=== PATIENT | male | born 1995 | race Caucasian/White ===

== ENCOUNTER 2021-07-02 17:29 | Inpatient (IN) | payer MEDICAID ==
[~2021-07-02] VITALS: Ht 185.4 cm; Wt 105.5 kg
[2021-07-02 18:44] LABS: BASOPHILS % (AUTO) 0.4 % (0.0-2.0); EOSINOPHILS % (AUTO) 0 % (1.0-6.0); HEMATOCRIT 41.4 % (41-53); HEMOGLOBIN 14.4 g/dL (13.5-17.5); LYMPHOCYTES # (AUTO) 1.1 K/uL (1.0-4.8); LYMPHOCYTES % (AUTO) 16.4 % (22.0-44.0); MEAN CORPUSCULAR HEMOGLOBIN 32.1 pg (26.0-34.0); MEAN CORPUSCULAR HGB CONC 34.7 G/dL (31.0-37.0); MEAN CORPUSCULAR VOLUME 93 fL (80-100); MONOCYTES # (AUTO) 0.5 K/uL (0.1-1.0); MONOCYTES % (AUTO) 8.4 % (2.0-9.0); NEUTROPHILS # (AUTO) 4.9 K/uL (1.8-7.7); NEUTROPHILS % (AUTO) 74.8 % (40.0-70.0); PLATELET COUNT (AUTO) 190 K/uL (150-450); RED BLOOD CELL COUNT(AUTO) 4.47 MIL/uL (4.50-5.90)
[2021-07-02 18:52] LABS: ANION GAP 12 mmol/L (8-16); CALCIUM, TOTAL 9.7 mg/dL (8.8-10.5); CARBON DIOXIDE 26 mmol/L (22-29); CHLORIDE 104 mmol/L (98-107); CREATININE 1.16 mg/dL (0.60-1.30); GLOMERULAR FILTR. RATE CALC > 60 mL/min (>60); GLUCOSE,RANDOM 103 mg/dL (70-110); POTASSIUM 3.9 mmol/L (3.5-5.1); SODIUM SERUM 142 mmol/L (136-145); UREA NITROGEN, BLOOD 11 mg/dL (7-18)
[2021-07-02 19:00] LABS: ALANINE AMINOTRANSFERASE 18 U/L (12-78); ALBUMIN 4.6 g/dL (3.4-5.0); ALKALINE PHOSPHATASE 57 U/L (46-116); ASPARTATE AMINOTRANSFERASE 13 U/L (15-37); BILIRUBIN,TOTAL 0.5 mg/dL (0.1-1.0); TOTAL PROTEIN, SERUM 7.9 g/dL (6.4-8.2)
[2021-07-02] MEDS ORDERED: LORazepam 1 MG TABLET PO ONE (19:15)
[2021-07-03 06:54] LABS: COVID AG,FIA SOURCE NASOPHARYNGEAL
[2021-07-03] MEDS ORDERED: ACETAMINOPHEN 325 MG TABLET PO PRN (10:30)
[2021-07-03] MEDS ORDERED: IBUPROFEN 400 MG TABLET PO PRN (10:30)
[2021-07-03] MEDS ORDERED: NICOTINE 14 MG/24 HOUR PATCH TD PRN (10:30)
[2021-07-03] MEDS ORDERED: CloNIDine HCL 0.1 MG TABLET PO PRN (10:30)
[2021-07-03] MEDS ORDERED: LOPERAMIDE HCL 2 MG CAPSULE PO PRN (10:30)
[2021-07-03] MEDS ORDERED: ONDANSETRON HCL 4 MG TABLET PO PRN (10:30)
[2021-07-03] MEDS ORDERED: GuaiFENesin/D-METHORPHAN [SUGAR-FREE] 200-20MG/10 ML SYRUP UDCUP PO PRN (10:30)
[2021-07-03] MEDS ORDERED: ALBUTEROL SULFATE HFA 90 MCG/PUFF 8 GM INHALER IH PRN (10:30)
[2021-07-03] MEDS ORDERED: MAG HYDROX/AL HYDROX/SIMETH ES 30 ML SUSPENSION UDCUP PO PRN (10:30)
[2021-07-03] MEDS ORDERED: PETROLATUM,WHITE 28 GM JELLY TP PRN (10:30)
[2021-07-03] MEDS ORDERED: MAGNESIUM HYDROXIDE SUSPENSION 30 ML UDCUP PO PRN (10:30)
[2021-07-03] MEDS ORDERED: DOCUSATE SODIUM 100 MG CAPSULE PO PRN (10:30)
[2021-07-03 11:51] LABS: AMPHET/METH SCREEN,URINE NEGATIVE (NEGATIVE); BARBITURATE SCREEN, URINE NEGATIVE (NEGATIVE); BENZODIAZEPINES SCREEN,URINE NEGATIVE (NEGATIVE); CANNABINOID SCREEN,URINE NEGATIVE (NEGATIVE); COCAINE SCREEN,URINE NEGATIVE (NEGATIVE); METHADONE SCREEN, URINE NEGATIVE (NEGATIVE); OPIATE SCREEN,URINE NEGATIVE (NEGATIVE); PHENCYCLIDINE SCREEN,URINE NEGATIVE (NEGATIVE)
[2021-07-03] MEDS ORDERED: INFLUENZA VIRUS VACCINE QVS 2021-22 (6MO+)/PF 60 MCG/0.5 ML SYRINGE IM. ONE (14:45)
[2021-07-03 16:13] VITALS: BP 122/81
[2021-07-03] MEDS ORDERED: HALOPERIDOL 5 MG TABLET PO PRN (17:15)
[2021-07-03] MEDS ORDERED: LORazepam 2 MG TABLET PO PRN (17:15)
[2021-07-03] MEDS ORDERED: ZOLPIDEM TARTRATE 10 MG TABLET PO PRN (17:15)
[2021-07-04 00:22] VITALS: BP 126/73
[2021-07-04 08:10] VITALS: BP 127/79
[2021-07-04] MEDS ORDERED: HALOPERIDOL 5 MG TABLET PO PRN (09:15)
[2021-07-04] MEDS: SERTRALINE HCL 50 MG TABLET PO SCH (09:30)
[2021-07-04] MEDS: OMEPRAZOLE 20 MG CAPSULE PO SCH (11:37)
[2021-07-04] MEDS: EMTRICITABINE/TENOFOV ALAFENAM 200-25 MG TABLET PO SCH (16:40)
[2021-07-04 17:21] VITALS: BP 117/65
[2021-07-04] MEDS: ZOLPIDEM TARTRATE 10 MG TABLET PO PRN (21:03)
[2021-07-05 00:15] VITALS: BP 114/68
[2021-07-05 07:23] LABS: CHOL/HDL RATIO 3.9 (4.2-7.3)
[2021-07-05 08:00] VITALS: BP 121/79
[2021-07-05] MEDS: OMEPRAZOLE 20 MG CAPSULE PO SCH (08:38)
[2021-07-05] MEDS: SERTRALINE HCL 50 MG TABLET PO SCH (08:38)
[2021-07-05] MEDS: EMTRICITABINE/TENOFOV ALAFENAM 200-25 MG TABLET PO SCH (08:38)
[2021-07-05] MEDS: LORazepam 2 MG TABLET PO PRN (10:10)
[2021-07-05 16:13] VITALS: BP 131/82
[2021-07-05] MEDS: ZOLPIDEM TARTRATE 10 MG TABLET PO PRN (20:49)
[2021-07-06 03:49] VITALS: BP 111/73
[2021-07-06 08:18] VITALS: BP 126/68
[2021-07-06] MEDS: OMEPRAZOLE 20 MG CAPSULE PO SCH (08:55)
[2021-07-06] MEDS: SERTRALINE HCL 50 MG TABLET PO SCH (08:56)
[2021-07-06] MEDS: EMTRICITABINE/TENOFOV ALAFENAM 200-25 MG TABLET PO SCH (08:56)
[2021-07-06] MEDS: LORazepam 2 MG TABLET PO PRN (12:40)
[2021-07-06 16:20] VITALS: BP 118/77
[2021-07-06] MEDS: ZOLPIDEM TARTRATE 10 MG TABLET PO PRN (20:50)
[2021-07-07 00:38] VITALS: BP 121/67
[2021-07-07] MEDS: EMTRICITABINE/TENOFOV ALAFENAM 200-25 MG TABLET PO SCH (08:37)
[2021-07-07] MEDS: SERTRALINE HCL 50 MG TABLET PO SCH (08:37)
[2021-07-07] MEDS: OMEPRAZOLE 20 MG CAPSULE PO SCH (08:37)
[2021-07-07 08:39] VITALS: BP 122/63
[2021-07-07] MEDS: LORazepam 2 MG TABLET PO PRN (12:23)
[2021-07-07 16:31] VITALS: BP 131/74
[2021-07-07] MEDS: ZOLPIDEM TARTRATE 10 MG TABLET PO PRN (20:23)
[2021-07-08 00:58] VITALS: BP 116/66
[2021-07-08 08:15] VITALS: BP 115/62
[2021-07-08] MEDS: OMEPRAZOLE 20 MG CAPSULE PO SCH (09:29)
[2021-07-08] MEDS: SERTRALINE HCL 50 MG TABLET PO SCH (09:29)
[2021-07-08] MEDS: EMTRICITABINE/TENOFOV ALAFENAM 200-25 MG TABLET PO SCH (09:29)
[2021-07-08] MEDS: LORazepam 2 MG TABLET PO PRN (09:33)
[2021-07-08] MEDS ORDERED: SERT-439 PO (11:18)
[2021-07-08] MEDS ORDERED: OMEP20 PO (11:43)
[2021-07-08] MEDS ORDERED: EMTR1TAB13 PO (11:43)
[2021-07-08 13:06] LABS: GLUCOMETER DEV NAME(LOC) POC.BV
== END 2021-07-08 13:30 | disposition home or self-care (01) | DRG 751 ==
LOC: EMS 17:31 → B2S 07-03 11:31
PROVIDERS: ADMIT Psychiatry & Neurology Psychiatry; ATTEND Psychiatry & Neurology Psychiatry
DX: F33.2 Major depressive disorder, recurrent severe without psychotic features (principal); R45.851 Suicidal ideations; F95.2 Tourette's disorder; E66.9 Obesity, unspecified; F42.9 Obsessive-compulsive disorder, unspecified; F43.12 Post-traumatic stress disorder, chronic; G47.00 Insomnia, unspecified; K21.9 Gastro-esophageal reflux disease without esophagitis; F90.9 Attention-deficit hyperactivity disorder, unspecified type; Z20.822 Contact with and (suspected) exposure to COVID-19; Z91.51 Personal history of suicidal behavior; Z79.899 Other long term (current) drug therapy; Z23 Encounter for immunization; Z68.30 Body mass index [BMI] 30.0-30.9, adult
CPT/HCPCS: 80053; 80061; 85025; 90686; 99285; G0480; Q9967

== ENCOUNTER 2021-07-14 01:52 | Inpatient (IN) | payer MEDICAID ==
[~2021-07-14] VITALS: Ht 185.4 cm; Wt 104.4 kg
[~2021-07-14 01:52] MED LIST: EMTR1TAB13 PO; OMEP20 PO; SERT-439 PO
[2021-07-14] MEDS ORDERED: HALOPERIDOL LACTATE 5 MG/ML VIAL IM ONE (03:30)
[2021-07-14] MEDS ORDERED: LORazepam 2 MG/ML VIAL IM ONE (03:30)
[2021-07-14] MEDS ORDERED: DiphenhydrAMINE HCL 50 MG/ML VIAL IM ONE (03:30)
[2021-07-14 04:08] LABS: COVID AG,FIA SOURCE NASOPHARYNGEAL
[2021-07-14 05:31] LABS: AMPHET/METH SCREEN,URINE NEGATIVE (NEGATIVE); BARBITURATE SCREEN, URINE NEGATIVE (NEGATIVE); BENZODIAZEPINES SCREEN,URINE NEGATIVE (NEGATIVE); CANNABINOID SCREEN,URINE NEGATIVE (NEGATIVE); COCAINE SCREEN,URINE NEGATIVE (NEGATIVE); METHADONE SCREEN, URINE NEGATIVE (NEGATIVE); OPIATE SCREEN,URINE NEGATIVE (NEGATIVE)
[2021-07-14 05:33] LABS: PHENCYCLIDINE SCREEN,URINE NEGATIVE (NEGATIVE)
[2021-07-14 07:23] LABS: BASOPHILS % (AUTO) 0.3 % (0.0-2.0); EOSINOPHILS % (AUTO) 0 % (1.0-6.0); HEMATOCRIT 40.9 % (41-53); HEMOGLOBIN 14.3 g/dL (13.5-17.5); LYMPHOCYTES # (AUTO) 1.5 K/uL (1.0-4.8); LYMPHOCYTES % (AUTO) 16.6 % (22.0-44.0); MEAN CORPUSCULAR HEMOGLOBIN 32.2 pg (26.0-34.0); MEAN CORPUSCULAR VOLUME 92 fL (80-100); MONOCYTES # (AUTO) 1.1 K/uL (0.1-1.0); MONOCYTES % (AUTO) 12.2 % (2.0-9.0); NEUTROPHILS # (AUTO) 6.5 K/uL (1.8-7.7); NEUTROPHILS % (AUTO) 70.9 % (40.0-70.0); PLATELET COUNT (AUTO) 168 K/uL (150-450); RED BLOOD CELL COUNT(AUTO) 4.44 MIL/uL (4.50-5.90); RED CELL DISTRIBUTION WIDTH 12.3 % (11.5-14.5)
[2021-07-14 07:34] LABS: ANION GAP 11 mmol/L (8-16); CALCIUM, TOTAL 9.2 mg/dL (8.8-10.5); CARBON DIOXIDE 26 mmol/L (22-29); CHLORIDE 106 mmol/L (98-107); CREATININE 1.15 mg/dL (0.60-1.30); GLOMERULAR FILTR. RATE CALC > 60 mL/min (>60); GLUCOSE,RANDOM 101 mg/dL (70-110); POTASSIUM 4.1 mmol/L (3.5-5.1); SODIUM SERUM 143 mmol/L (136-145); UREA NITROGEN, BLOOD 14 mg/dL (7-18)
[2021-07-14 07:39] LABS: ALANINE AMINOTRANSFERASE 18 U/L (12-78); ALBUMIN 4.4 g/dL (3.4-5.0); ALKALINE PHOSPHATASE 55 U/L (46-116); ASPARTATE AMINOTRANSFERASE 17 U/L (15-37); BILIRUBIN,TOTAL 1.1 mg/dL (0.1-1.0); TOTAL PROTEIN, SERUM 7.4 g/dL (6.4-8.2)
[2021-07-14 12:29] VITALS: BP 117/84
[2021-07-14] MEDS: HALOPERIDOL 5 MG TABLET PO PRN (13:37)
[2021-07-14] MEDS: LORazepam 2 MG TABLET PO PRN (13:37)
[2021-07-14 16:18] VITALS: BP 123/78
[2021-07-15 00:50] VITALS: BP 121/64
[2021-07-15 08:24] VITALS: BP 106/61
[2021-07-15] MEDS ORDERED: EMTRICITABINE/TENOFOV ALAFENAM 200-25 MG TABLET PO SCH (09:00)
[2021-07-15] MEDS ORDERED: OMEPRAZOLE 20 MG CAPSULE PO SCH (09:00)
[2021-07-15] MEDS: LORazepam 2 MG TABLET PO PRN (16:07)
[2021-07-15 16:20] VITALS: BP 140/81
[2021-07-15] MEDS ORDERED: NICOTINE 14 MG/24 HOUR PATCH TD PRN (17:15)
[2021-07-15] MEDS ORDERED: ONDANSETRON HCL 4 MG TABLET PO PRN (17:15)
[2021-07-15] MEDS ORDERED: CloNIDine HCL 0.1 MG TABLET PO PRN (17:15)
[2021-07-15] MEDS ORDERED: PETROLATUM,WHITE 28 GM JELLY TP PRN (17:15)
[2021-07-15] MEDS ORDERED: DOCUSATE SODIUM 100 MG CAPSULE PO PRN (17:15)
[2021-07-15] MEDS ORDERED: ACETAMINOPHEN 325 MG TABLET PO PRN (17:15)
[2021-07-15] MEDS ORDERED: LOPERAMIDE HCL 2 MG CAPSULE PO PRN (17:15)
[2021-07-15] MEDS ORDERED: MAGNESIUM HYDROXIDE SUSPENSION 30 ML UDCUP PO PRN (17:15)
[2021-07-15] MEDS ORDERED: ALBUTEROL SULFATE HFA 90 MCG/PUFF 8 GM INHALER IH PRN (17:15)
[2021-07-15] MEDS ORDERED: IBUPROFEN 400 MG TABLET PO PRN (17:15)
[2021-07-15] MEDS ORDERED: GuaiFENesin/D-METHORPHAN [SUGAR-FREE] 200-20MG/10 ML SYRUP UDCUP PO PRN (17:15)
[2021-07-15] MEDS ORDERED: MAG HYDROX/AL HYDROX/SIMETH ES 30 ML SUSPENSION UDCUP PO PRN (17:15)
[2021-07-15] MEDS: BusPIRone HCL 5 MG TABLET PO SCH (20:39)
[2021-07-16 00:33] VITALS: BP 133/72
[2021-07-16 08:33] VITALS: BP 136/87
[2021-07-16] MEDS: EMTRICITABINE/TENOFOV ALAFENAM 200-25 MG TABLET PO SCH (08:59)
[2021-07-16] MEDS: BusPIRone HCL 5 MG TABLET PO SCH ×3 (08:59→20:10)
[2021-07-16] MEDS: OMEPRAZOLE 20 MG CAPSULE PO SCH (08:59)
[2021-07-16] MEDS: SERTRALINE HCL 50 MG TABLET PO SCH (08:59)
[2021-07-16 16:26] VITALS: BP 122/74
[2021-07-16] MEDS: LORazepam 2 MG TABLET PO PRN (16:37)
[2021-07-16] MEDS: ZOLPIDEM TARTRATE 10 MG TABLET PO PRN (21:11)
[2021-07-17 00:37] VITALS: BP 119/70
[2021-07-17] MEDS: BusPIRone HCL 5 MG TABLET PO SCH ×3 (08:30→20:06)
[2021-07-17] MEDS: EMTRICITABINE/TENOFOV ALAFENAM 200-25 MG TABLET PO SCH (08:30)
[2021-07-17] MEDS: SERTRALINE HCL 50 MG TABLET PO SCH (08:30)
[2021-07-17] MEDS: OMEPRAZOLE 20 MG CAPSULE PO SCH (08:30)
[2021-07-17 09:11] VITALS: BP 126/69
[2021-07-17] MEDS: LORazepam 2 MG TABLET PO PRN (14:06)
[2021-07-17 16:14] VITALS: BP 133/74
[2021-07-17] MEDS: TraZODone HCL 50 MG TABLET PO SCH (20:06)
[2021-07-18 05:50] VITALS: BP 107/60
[2021-07-18 08:34] VITALS: BP 112/68
[2021-07-18] MEDS: BusPIRone HCL 5 MG TABLET PO SCH ×3 (09:05→20:31)
[2021-07-18] MEDS: EMTRICITABINE/TENOFOV ALAFENAM 200-25 MG TABLET PO SCH (09:05)
[2021-07-18] MEDS: OMEPRAZOLE 20 MG CAPSULE PO SCH (09:05)
[2021-07-18] MEDS: SERTRALINE HCL 50 MG TABLET PO SCH (09:05)
[2021-07-18] MEDS: LORazepam 2 MG TABLET PO PRN (14:13)
[2021-07-18 16:16] VITALS: BP 132/78
[2021-07-18] MEDS: TraZODone HCL 50 MG TABLET PO SCH (20:31)
[2021-07-18] MEDS: ZOLPIDEM TARTRATE 10 MG TABLET PO PRN (23:05)
[2021-07-19 00:40] VITALS: BP 127/76
[2021-07-19 07:49] LABS: COVID AG,FIA SOURCE NASOPHARYNGEAL
[2021-07-19] MEDS: OMEPRAZOLE 20 MG CAPSULE PO SCH (08:13)
[2021-07-19] MEDS: BusPIRone HCL 5 MG TABLET PO SCH (08:13)
[2021-07-19] MEDS: SERTRALINE HCL 50 MG TABLET PO SCH (08:13)
[2021-07-19] MEDS: EMTRICITABINE/TENOFOV ALAFENAM 200-25 MG TABLET PO SCH (08:13)
[2021-07-19 08:27] VITALS: BP 126/71
[2021-07-19] MEDS ORDERED: BusPIRone HCL 5 MG TABLET PO ONE (10:00)
[2021-07-19] MEDS ORDERED: SERTRALINE HCL 50 MG TABLET PO ONE (10:00)
[2021-07-19] MEDS: HALOPERIDOL 5 MG TABLET PO PRN (12:43)
[2021-07-19] MEDS: LORazepam 2 MG TABLET PO PRN (12:43)
[2021-07-19 16:09] VITALS: BP 146/83
[2021-07-19] MEDS: BusPIRone HCL 10 MG TABLET PO SCH ×2 (16:51→20:34)
[2021-07-19] MEDS: TraZODone HCL 50 MG TABLET PO SCH (20:34)
[2021-07-20 05:30] VITALS: BP 103/63
[2021-07-20] MEDS: OMEPRAZOLE 20 MG CAPSULE PO SCH (08:14)
[2021-07-20] MEDS: SERTRALINE HCL 100 MG TABLET PO SCH (08:15)
[2021-07-20] MEDS: BusPIRone HCL 10 MG TABLET PO SCH ×3 (08:15→21:02)
[2021-07-20] MEDS: EMTRICITABINE/TENOFOV ALAFENAM 200-25 MG TABLET PO SCH (08:15)
[2021-07-20 08:16] VITALS: BP 129/78
[2021-07-20 16:12] VITALS: BP 109/75
[2021-07-20] MEDS: TraZODone HCL 50 MG TABLET PO SCH (21:02)
[2021-07-20] MEDS: ZOLPIDEM TARTRATE 10 MG TABLET PO PRN (22:34)
[2021-07-21 00:41] VITALS: BP 122/73
[2021-07-21] MEDS: SERTRALINE HCL 100 MG TABLET PO SCH (08:08)
[2021-07-21] MEDS: BusPIRone HCL 10 MG TABLET PO SCH ×3 (08:08→20:07)
[2021-07-21] MEDS: OMEPRAZOLE 20 MG CAPSULE PO SCH (08:08)
[2021-07-21] MEDS: EMTRICITABINE/TENOFOV ALAFENAM 200-25 MG TABLET PO SCH (08:08)
[2021-07-21 08:13] VITALS: BP 137/80
[2021-07-21] MEDS: LORazepam 2 MG TABLET PO PRN (09:25)
[2021-07-21 16:00] VITALS: BP 137/84
[2021-07-21] MEDS: TraZODone HCL 50 MG TABLET PO SCH (20:07)
[2021-07-21] MEDS: ZOLPIDEM TARTRATE 10 MG TABLET PO PRN (21:56)
[2021-07-22 00:26] VITALS: BP 132/78
[2021-07-22 08:04] VITALS: BP 133/86
[2021-07-22] MEDS: SERTRALINE HCL 100 MG TABLET PO SCH (08:16)
[2021-07-22] MEDS: OMEPRAZOLE 20 MG CAPSULE PO SCH (08:16)
[2021-07-22] MEDS: EMTRICITABINE/TENOFOV ALAFENAM 200-25 MG TABLET PO SCH (08:16)
[2021-07-22] MEDS: BusPIRone HCL 10 MG TABLET PO SCH ×3 (08:16→21:02)
[2021-07-22] MEDS: LORazepam 2 MG TABLET PO PRN (09:56)
[2021-07-22 16:17] VITALS: BP 145/81
[2021-07-22 19:06] LABS: GLUCOMETER DEV NAME(LOC) POC.BV
[2021-07-22] MEDS: TraZODone HCL 50 MG TABLET PO SCH (21:02)
[2021-07-22] MEDS: ZOLPIDEM TARTRATE 10 MG TABLET PO PRN (22:03)
[2021-07-23 00:50] VITALS: BP 143/81
[2021-07-23 08:06] VITALS: BP 136/78
[2021-07-23] MEDS: EMTRICITABINE/TENOFOV ALAFENAM 200-25 MG TABLET PO SCH (09:19)
[2021-07-23] MEDS: LORazepam 2 MG TABLET PO PRN (09:20)
[2021-07-23] MEDS: SERTRALINE HCL 100 MG TABLET PO SCH (09:20)
[2021-07-23] MEDS: OMEPRAZOLE 20 MG CAPSULE PO SCH (09:20)
[2021-07-23] MEDS: BusPIRone HCL 10 MG TABLET PO SCH ×3 (09:20→20:27)
[2021-07-23 16:14] VITALS: BP 109/72
[2021-07-23] MEDS: TraZODone HCL 50 MG TABLET PO SCH (20:27)
[2021-07-23] MEDS: ZOLPIDEM TARTRATE 10 MG TABLET PO PRN (20:47)
[2021-07-24 06:12] VITALS: BP 128/78
[2021-07-24] MEDS: EMTRICITABINE/TENOFOV ALAFENAM 200-25 MG TABLET PO SCH (08:19)
[2021-07-24] MEDS: BusPIRone HCL 10 MG TABLET PO SCH ×3 (08:20→20:12)
[2021-07-24] MEDS: SERTRALINE HCL 100 MG TABLET PO SCH (08:20)
[2021-07-24] MEDS: OMEPRAZOLE 20 MG CAPSULE PO SCH (08:20)
[2021-07-24 08:23] VITALS: BP 134/81
[2021-07-24 11:02] LABS: GLUCOMETER DEV NAME(LOC) POC.BV
[2021-07-24] MEDS: LORazepam 2 MG TABLET PO PRN (14:49)
[2021-07-24 16:26] VITALS: BP 124/74
[2021-07-24] MEDS: TraZODone HCL 50 MG TABLET PO SCH (20:12)
[2021-07-24] MEDS: ZOLPIDEM TARTRATE 10 MG TABLET PO PRN (22:00)
[2021-07-25 06:44] VITALS: BP 122/70
[2021-07-25] MEDS: OMEPRAZOLE 20 MG CAPSULE PO SCH (08:10)
[2021-07-25] MEDS: BusPIRone HCL 10 MG TABLET PO SCH ×3 (08:10→20:07)
[2021-07-25] MEDS: EMTRICITABINE/TENOFOV ALAFENAM 200-25 MG TABLET PO SCH (08:10)
[2021-07-25] MEDS: SERTRALINE HCL 100 MG TABLET PO SCH (08:10)
[2021-07-25 08:23] VITALS: BP 137/76
[2021-07-25] MEDS: LORazepam 2 MG TABLET PO PRN (10:42)
[2021-07-25] MEDS: HALOPERIDOL 5 MG TABLET PO PRN (12:03)
[2021-07-25 16:18] VITALS: BP 116/69
[2021-07-25] MEDS: TraZODone HCL 50 MG TABLET PO SCH (20:07)
[2021-07-25] MEDS: ZOLPIDEM TARTRATE 10 MG TABLET PO PRN (21:15)
[2021-07-26 06:36] VITALS: BP 112/63
[2021-07-26 08:06] VITALS: BP 139/82
[2021-07-26] MEDS: OMEPRAZOLE 20 MG CAPSULE PO SCH (08:13)
[2021-07-26] MEDS: SERTRALINE HCL 100 MG TABLET PO SCH (08:13)
[2021-07-26] MEDS: BusPIRone HCL 10 MG TABLET PO SCH ×3 (08:13→20:07)
[2021-07-26] MEDS: EMTRICITABINE/TENOFOV ALAFENAM 200-25 MG TABLET PO SCH (08:13)
[2021-07-26 16:10] VITALS: BP 143/84
[2021-07-26] MEDS: TraZODone HCL 50 MG TABLET PO SCH (20:07)
[2021-07-26] MEDS: ZOLPIDEM TARTRATE 10 MG TABLET PO PRN (21:17)
[2021-07-27 00:47] VITALS: BP 136/86
[2021-07-27] MEDS: SERTRALINE HCL 100 MG TABLET PO SCH (08:16)
[2021-07-27] MEDS: EMTRICITABINE/TENOFOV ALAFENAM 200-25 MG TABLET PO SCH (08:16)
[2021-07-27] MEDS: BusPIRone HCL 10 MG TABLET PO SCH (08:16)
[2021-07-27] MEDS: OMEPRAZOLE 20 MG CAPSULE PO SCH (08:16)
[2021-07-27 08:56] VITALS: BP 121/88
[2021-07-27] MEDS ORDERED: EMTR1TAB13 PO ×2 (10:41→15:44)
[2021-07-27] MEDS ORDERED: BUSP10TA23 PO ×2 (10:41→15:44)
[2021-07-27] MEDS ORDERED: TRAZ-252 PO ×2 (10:41→15:44)
[2021-07-27] MEDS ORDERED: SERT-440 PO ×2 (10:41→15:44)
[2021-07-27] MEDS ORDERED: OMEP20 PO ×2 (10:41→15:44)
== END 2021-07-27 13:50 | disposition home or self-care (01) | DRG 751 ==
LOC: EMS 01:52 → B2S 10:50
PROVIDERS: ADMIT Psychiatry & Neurology Child & Adolescent Psychiatry; ATTEND Psychiatry & Neurology Psychiatry
DX: F33.3 Major depressive disorder, recurrent, severe with psychotic symptoms (principal); R45.851 Suicidal ideations; D50.9 Iron deficiency anemia, unspecified; F10.10 Alcohol abuse, uncomplicated; F19.10 Other psychoactive substance abuse, uncomplicated; F42.9 Obsessive-compulsive disorder, unspecified; F43.12 Post-traumatic stress disorder, chronic; K21.9 Gastro-esophageal reflux disease without esophagitis; Z20.822 Contact with and (suspected) exposure to COVID-19; S10.91XA Abrasion of unspecified part of neck, initial encounter; Y93.89 Activity, other specified; Y92.89 Other specified places as the place of occurrence of the external cause; Y99.8 Other external cause status; Z59.00 Homelessness unspecified; Z78.1 Physical restraint status; Z79.899 Other long term (current) drug therapy; Z91.51 Personal history of suicidal behavior; X83.8XXA Intentional self-harm by other specified means, initial encounter
CPT/HCPCS: 80053; 85025; 87081; 99291; G0480; J1200; J1630; J2060; Q9967